=== PATIENT | female | born 1950 | race Caucasian/White ===

== ENCOUNTER 2017-08-29 08:25 | Day surgery (SDC) | payer OTHER ==
[~2017-08-29] VITALS: Ht 157.5 cm; Wt 45.0 kg
[~2017-08-29 08:25] MED LIST: AMOX TR-K CLV1 EAC4 PO; MIRALAX255 GM PO; MOBIC15 MG PO; VICODIN,LORT1 TABLET PO; VITAMIN D32000 UNI1 PO
[2017-08-29 08:52] VITALS: BP 120/77
[2017-08-29] MEDS ORDERED: NORCO 5/3251 TABLET PO (12:25)
[2017-08-29 12:46] VITALS: BP 147/73
[2017-08-29 13:35] VITALS: BP 120/76
== END 2017-08-29 13:35 | disposition home or self-care (01) ==
LOC: SDC 08:25
PROC: 0WUF0JZ Supplement Abdominal Wall with Synthetic Substitute, Open Approach (ICD-10-PCS; principal; 2017-08-29)
DX: K43.9 Ventral hernia without obstruction or gangrene (principal); Z85.828 Personal history of other malignant neoplasm of skin; Z82.49 Family history of ischemic heart disease and other diseases of the circulatory system; F17.200 Nicotine dependence, unspecified, uncomplicated; Z90.710 Acquired absence of both cervix and uterus
CPT/HCPCS: C1781; J0690; J2250; J3010; S0020